=== PATIENT | female | born 2000 | race Two or more races ===

== ENCOUNTER 2024-06-27 01:44 | Emergency (ER) | payer OTHER ==
[~2024-06-27] VITALS: Ht 165.1 cm; Wt 76.7 kg
[2024-06-27] MEDS ORDERED: RINGERS SOLUTION,LACTATED 500 ML IV STA (03:08)
[2024-06-27 03:34] LABS: HEMATOCRIT 38.7 % (36.0-45.00); MEAN CELL VOLUME 87.5 fL (80.00-100.00); MEAN CORPUSCULAR HEMOGLOBIN 29.4 pg (27.00-32.0); MEAN CORPUSCULAR HGB CONC 33.6 g/dl (32.0-36.0); PLATELET COUNT 200 K/uL (150-450); RED BLOOD COUNT 4.43 M/uL (4.00-6.00)
[2024-06-27 04:00] LABS: INR 1.1; PARTIAL THROMBOPLASTIN TIME 32.2 SECONDS (22.0-34.0); PROTHROMBIN TIME 11.5 SECONDS (9.0-11.5)
[2024-06-27 04:17] LABS: ALBUMIN 3.3 gm/dL (3.4-5.0); BILIRUBIN TOTAL 0.22 mg/dL (0.3-1.2); CALCIUM 9.3 mg/dL (8.5-10.1); CREATININE SERUM 0.48 mg/dL (0.55-1.02); GFR 163.26; GLOBULINA 3.3 G/DL (2.4-3.5); POTASSIUM 4.41 mEq/L (3.5-5.1); TOTAL PROTEIN 6.6 gm/dL (6.4-8.2)
== END 2024-06-27 07:13 | disposition home or self-care (01) ==
LOC: ER 01:44
DX: O26.859 Spotting complicating pregnancy, unspecified trimester (principal); Z91.013 Allergy to seafood